=== PATIENT | male | born 1925 | race Caucasian/White ===

== ENCOUNTER 2017-08-10 12:12 | Observation (INO) | payer OTHER ==
[~2017-08-10] VITALS: Ht 162.6 cm; Wt 70.0 kg
[~2017-08-10 12:12] MED LIST: COLACE100 MG PO; Colchicine,Colcrys PO; DOCUSATE SODIU100 MG PO; FERROUS SULFAT325 MG PO; HYDROCODON-ACE1 EAC7 PO; IRON325 M1 PO; LEVAQUIN500 MG PO; LIDODERM 5% P1 PATCH TD; MEN'S MULTI-VI1 EACH PO; MILK OF MAGNESI10 ML PO; MUPIROCIN22 GM BOTH NARES; ONDANSETRON ODT4 MG PO; PANTOPRAZOLE SO40 MG PO; PHILLIPS'400 MG/5 M PO; POLYETHYLENE GL17 GM PO; Remove Lidoderm Patc TD; SENNA PLUS TAB1 EACH PO; SENOKOT S,PE1 TABLET PO; TYLENOL REGULA325 MG PO; ZOFRAN4 MG PO
[2017-08-10 12:52] LABS: HEMATOCRIT 40.8 % (38.0-50.0); HEMOGLOBIN 13.4 G/DL (12.5-16.6); MCH 30.4 PG (29.0-34.0); MCHC 32.8 G/DL (30.0-36.0); MCV 92.5 FL (86-99); PLATELET COUNT 163 K/uL (156-360); RBC DIS.WIDTH-CV 13.7 % (11.8-14.6); RBC DIS.WIDTH-SD 46.6 % (39-53); RED BLOOD COUNT 4.41 M/uL (4.00-5.50); WHITE BLOOD COUNT 6.3 K/uL (4.1-10.2)
[2017-08-10 13:03] LABS: CHLORIDE 106 mEq/L (99-109); POTASSIUM 5.3 mEq/L (3.7-5.4); SODIUM 139 mEq/L (136-147)
[2017-08-10 13:05] LABS: GLUCOSE 86 mg/dL (70-99)
[2017-08-10 13:09] LABS: CREATININE 1.6 mg/dL (0.6-1.3); GFR ESTIMATE (CALCULATED) 43 mL/min/ (58.99-99999)
[2017-08-10 13:10] LABS: UREA NITROGEN (BUN) 26 mg/dL (9-23)
[2017-08-10 13:13] LABS: TROP-I INTERPRETATION NEGATIVE; TROPONIN-I 0.03 ng/mL (0.0-0.30)
[2017-08-10] MEDS ORDERED: ALEVE220 MG PO (14:21)
[2017-08-10 14:26] LABS: TROP-I INTERPRETATION NEGATIVE; TROPONIN-I 0.03 ng/mL (0.0-0.30)
[2017-08-10 14:55] LABS: HDL CHOLESTEROL 32 MG/DL (Desirable>=40); LDL CHOLESTEROL 64 mg/dL (Desirable<100); NON-HDL CHOLESTEROL 83 mg/dL (Desirable<160); TOTAL CHOLESTEROL 115 mg/dL (Desirable<200); TRIGLYCERIDES 93 MG/DL (Normal: <150)
[2017-08-10 15:39] VITALS: BP 133/78
[2017-08-10 16:19] LABS: HEMOGLOBIN A1c (GLYCOHEMOGLOB) 5.5 % (Below 5.7)
[2017-08-10 19:00] VITALS: BP 100/56
[2017-08-10 19:17] LABS: TROP-I INTERPRETATION NEGATIVE; TROPONIN-I 0.02 ng/mL (0.0-0.30)
[2017-08-11 00:15] VITALS: BP 98/50
[2017-08-11 01:07] LABS: TROP-I INTERPRETATION NEGATIVE; TROPONIN-I 0.02 ng/mL (0.0-0.30)
[2017-08-11 04:00] VITALS: BP 106/55
[2017-08-11 08:15] VITALS: BP 95/58
[2017-08-11 12:22] VITALS: BP 115/70
== END 2017-08-11 13:07 | disposition home or self-care (01) ==
LOC: EME 12:12 → EDOF 13:31 → 5WEST 13:31 → EDOF 13:31 → ENRESERV 13:39 → EDOF 14:23 → 5WEST 15:23 → ENPENDDIS 08-11 11:50 → 5WEST 08-11 13:07
PROVIDERS: Hospitalist; Nurse Practitioner Family
DX: R07.9 Chest pain, unspecified (principal); Z96.642 Presence of left artificial hip joint; M10.9 Gout, unspecified; Z82.49 Family history of ischemic heart disease and other diseases of the circulatory system; Z79.82 Long term (current) use of aspirin
CPT/HCPCS: 71046; 80048; 80061; 83036; 84484; 85027; 93005; G0378; J1650; S0028